=== PATIENT | female | born 1995 | race Caucasian/White ===

== ENCOUNTER 2019-10-12 13:28 | Emergency (ER) | payer OTHER ==
[2019-10-12 13:35] VITALS: BP 132/84
--- NOTE | 2019-10-12 13:49 | ER Document Report ---
ED Medical Screen (RME) - General Chief Complaint: Shoulder Injury Stated Complaint: SHOULDER INJURY Time Seen by Provider: 10/12/19 13:47 Mode of Arrival: Ambulatory Notes: This is a 24-year-old female presented to the emergency room today stating that she had fallen off a ladder went to an urgent care and was told that she had dislocated her right shoulder they tried to manipulate it 3 times to put it back in and it has not stayed in. She was then sent here to the emergency room for conscious sedation to put the shoulder back in place There is a sling in place good capillary refill. I greeted and performed a rapid initial assessment of this patient. Comprehensive ED assessment and evaluation of the patient, analysis of test results and completion of the medical decision making process will be conducted by additional ED providers. - Related Data Allergies/Adverse Reactions: amoxicillin Allergy (Verified 10/12/19 13:44) Penicillins Allergy (Verified 10/12/19 13:44) Physical Exam - Vital signs Vitals: Temp Pulse Resp BP Pulse Ox 98.4 F 85 20 132/84 H 98 10/12/19 13:34 10/12/19 13:34 10/12/19 13:34 10/12/19 13:34 10/12/19 13:34 Course - Vital Signs Vital signs: Temp Pulse Resp BP Pulse Ox 98.4 F 85 20 132/84 H 98 10/12/19 13:34 10/12/19 13:34 10/12/19 13:34 10/12/19 13:34 10/12/19 13:34
--- NOTE | 2019-10-12 14:31 | RADIOLOGY REPORT (SQ) ---
EXAM DESCRIPTION: SHOULDER RIGHT 2 OR MORE VIEWS IMAGES COMPLETED DATE/TIME: 10/12/2019 2:02 pm REASON FOR STUDY: pain COMPARISON: None. NUMBER OF VIEWS: Three views. TECHNIQUE: Internal rotation, external rotation, and Y view images acquired of the right shoulder. LIMITATIONS: None. FINDINGS: MINERALIZATION: Normal. BONES: No acute fracture. No worrisome bone lesions. JOINTS: No dislocation. VISUALIZED LUNGS AND RIBS: No pneumothorax. No rib fracture. SOFT TISSUES: No radiopaque foreign body. OTHER: No other significant finding. IMPRESSION: NEGATIVE STUDY OF THE RIGHT SHOULDER. NO RADIOGRAPHIC EVIDENCE OF ACUTE INJURY. TECHNICAL DOCUMENTATION: JOB ID: [id number] 2010 [employer]- All Rights Reserved Reading location - IP/workstation name: [email or web address]
--- NOTE | 2019-10-12 14:46 | ER Document Report ---
HPI - HPI Patient complains to provider of: shoulder pain Time Seen by Provider: 10/12/19 13:47 Pain Level: 3 Context: This 24-year-old female presented to the emergency room today stating that she had fallen striking her shoulder went to the urgent care they said it was displaced they tried 3 times to put it back in ultimately sending her here because they did not feel that they have gotten back in. We did in fact perform an x-ray here not sure what the x-rays before yielded however the x-ray that was obtained by us did not indicate that the shoulder was dislocated in fact it is fractured and it is in the right place patient does have some tenderness there would probably benefit from orthopedic follow-up. Associated Symptoms: None Exacerbated by: Denies Past Medical History - General Information source: Patient - Social History Smoking Status: Never Smoker Cigarette use (# per day): No Chew tobacco use (# tins/day): No Smoking Education Provided: No Frequency of alcohol use: None Drug Abuse: None Family History: None Patient has homicidal ideation: No Vertical Provider Document - CONSTITUTIONAL Agree With Documented VS: Yes - HEENT HEENT: Atraumatic, Conjuctival Injection, Normocephalic, PERRLA - NECK Neck: Normal Inspection, Supple - RESPIRATORY Respiratory: Breath Sounds Normal, No Respiratory Distress - CARDIOVASCULAR Cardiovascular: Regular Rate, Regular Rhythm - GI/ABDOMEN Gastrointestinal: Abdomen Soft, Abdomen Non-Tender - REPRODUCTIVE Female Genitalia: Normal Inspection - BACK Back: Normal Inspection Course - Re-evaluation Re-evalutation: 10/12/19 14:44 Good distal pulses patient is in a sling which was present upon arrival to the emergency room it was suggested to the patient remain in that sling orthopedic follow-up will be provided. - Vital Signs Vital signs: Temp Pulse Resp BP Pulse Ox 98.4 F 85 20 132/84 H 98 10/12/19 13:44 10/12/19 13:34 10/12/19 13:34 10/12/19 13:34 10/12/19 13:34 - Diagnostic Test Radiology results interpreted by me: 10/12/19 14:44 Shoulder X-Ray 10/12/19 13:48 IMPRESSION: NEGATIVE STUDY OF THE RIGHT SHOULDER. NO RADIOGRAPHIC EVIDENCE OF ACUTE INJURY. Discharge - Discharge Clinical Impression: Shoulder pain Qualifiers: Chronicity: acute Laterality: right Qualified Code(s): M25.511 - Pain in right shoulder Disposition: HOME, SELF-CARE Instructions: Sling as Treatment ([facility]) Additional Instructions: Must follow-up with orthopedics in 2 to 3 days. Must return to the emergency room for absolutely any change worsening condition. Prescriptions: Ibuprofen [Motrin 600 mg Tablet] 600 mg PO Q8HP PRN #90 tablet PRN Reason: Forms: Parent Work Note Referrals: EITAN ONEIL MD [ACTIVE PROVISIONAL STAFF] - Follow up as needed
== END 2019-10-12 14:54 | disposition home or self-care (01) ==
LOC: ER 13:28
DX: M25.511 Pain in right shoulder (principal); W22.8XXA Striking against or struck by other objects, initial encounter
CPT/HCPCS: 99283